=== PATIENT | female | born 1965 | race Caucasian/White ===

== ENCOUNTER 2016-10-01 11:05 | Emergency (ER) | payer BC ==
[~2016-10-01] VITALS: Ht 170.2 cm; Wt 68.2 kg
[2016-10-01 11:10] VITALS: TEMP 36.8
[2016-10-01 11:20] VITALS: O2SAT 100
[2016-10-01] MEDS ORDERED: CHOL1CHW10 PO (11:57)
[2016-10-01] MEDS ORDERED: FERR325T PO (11:57)
[2016-10-01] MEDS ORDERED: MULT-506 PO (11:57)
[2016-10-01] MEDS ORDERED: BIOF500C2 PO (11:57)
[2016-10-01] MEDS ORDERED: SODIUM CHLORIDE 0.9% 1000ML 1,000 ML IV SCH (12:11)
[2016-10-01 12:15] VITALS: Ht 170.2 cm; Wt 68.2 kg
[2016-10-01 12:36] LABS: BASO % 1.1 %; BASO ABS # 0.05 K/uL (0-0.2); COMPLETE YES; EOS % 0.9 %; HEMATOCRIT 36.5 % (37-47); IG% 0.2 %; LYMPH % 29.3 %; LYMPH ABS # 1.28 K/uL (1.2-3.4); MEAN CELL VOLUME 91.3 fL (80-100); MEAN PLATELET VOLUME 10.7 fL (7.4-10.4); NEUT % 60.5 %; PLATELET COUNT 244 K/uL (130-400); WHITE BLOOD COUNT 4.37 K/uL (4.8-10.8)
--- NOTE | 2016-10-01 12:41 | DIAGNOSTIC IMAGING REPORT ---
CHEST ONE VIEW PORTABLE CLINICAL HISTORY: Stroke symptoms. COMPARISON STUDY: No previous studies for comparison. FINDINGS: There is no pneumothorax or pleural effusion. Lungs are clear. Cardiac size is normal. Mediastinal contours are normal. There is no evidence of pulmonary edema. IMPRESSION: No acute cardiopulmonary findings. Electronically signed by: Jermain Guadarrama M.D. 10/01/2016 12:39 PM Dictated Date/Time: 10/01/2016 12:38 PM
[2016-10-01 12:43] LABS: BLOOD UREA NITROGEN 17 mg/dl (7-18); BUN/CREATININE RATIO 16.9 (10-20); CALCIUM 8.8 mg/dl (8.5-10.1); CARBON DIOXIDE 26 mmol/L (21-32); CHLORIDE 105 mmol/L (98-107); GLUCOSE 104 mg/dl (70-99); POTASSIUM 3.8 mmol/L (3.5-5.1); SODIUM 140 mmol/L (136-145)
[2016-10-01 12:47] LABS: CKMB/CK RATIO 0.4 (0-3.0)
[2016-10-01] MEDS ORDERED: SODIUM CHLORIDE 0.9% 1000ML 1,000 ML IV STA (13:00)
--- NOTE | 2016-10-01 13:06 | EMERGENCY ROOM VISIT NOTE ---
History Report prepared by Delmer: Mariposa Odonnell Under the Supervision of: Dr. Mundo Quan M.D. First contact with patient: 12:11 Chief Complaint: SYNCOPE (NEAR SYNCOPE) Stated Complaint: BLACKED OUT Nursing Triage Summary: pt reports while driving " I suddenly couldnt see for a short time, I said whats happening I could feel my hands on the steering wheel, I was aware the whole time" denies LOC. pt then went to MD office, sent here for eval speech clear and appropriate, denies DUNBAR ,denies vision changes at this time History of Present Illness The patient is a 51 year old female who presents to the Emergency Room with complaints of an episode of near syncope occurring [employer]. She was feeling fine this morning. She went for a jog and had half a bagel for breakfast. She notes that she ate a larger breakfast than she typically does. Later in the morning she was getting in the car to drive her son to the gym. The patient states that she had a tense interaction with him about sitting in the front seat. Shortly after this interaction she developed a "weird feeling." She states that she was feeling stressed. At this point, she had driven about 1-2 blocks when her symptoms started. The patient states that it was like a black curtain came over her vision in both eyes. She was unable to see out of both eyes for 2 seconds. She pulled off to the side of the road and then her vision quickly returned. The patient denies any LOC. She felt tingling after the episode and attributes this to feeling anxious. The patient also notes that she smelled something burning in the car and rolled the windows down. She states this smell is due to a recent oil change. The patient went to a [id number] today and was sent to the ED for further evaluation. She denies any recent long trips. Source of History: patient Onset: CONSUMER LOAN PROCESSOR Position: other (global) Quality: other (near-syncope) Timing: other (episode) Modifying Factors (Worsening): other (stress/anxiety) Associated Symptoms: No LOC Note: Pt reports loss of vision. Pt denies long trips. Review of Systems See HPI for pertinent positives & negatives. A total of 10 systems reviewed and were otherwise negative. Past Medical & Surgical Medical Problems: (1) No significant active problems Family History Heart disease Social History Smoking Status: Never Smoker Marital Status: Housing Status: lives with family Occupation Status: employed Current/Historical Medications Scheduled Bioflavonoid Products (Vitamin C), 500 MG PO DAILY Cholecalciferol (Vitamin D3), 1,000 UNITS PO DAILY Ferrous Sulfate (Ferrous Sulfate), 325 MG PO DAILY Multivitamin (Multivitamin), 1 TAB PO DAILY Allergies Coded Allergies: No Known Allergies (Unverified , 10/01/16) Physical Exam Vital Signs Date Time Temp Pulse Resp B/P Pulse Ox O2 Delivery O2 Flow Rate FiO2 10/01/16 13:49 75 16 119/71 99 10/01/16 13:20 76 16 120/71 100 Room Air 10/01/16 12:07 75 16 131/79 97 Room Air 10/01/16 11:26 77 10/01/16 11:20 100 Room Air 10/01/16 11:20 77 16 132/86 95 Room Air 10/01/16 11:10 36.8 86 18 141/76 100 Room Air Physical Exam GENERAL: Patient is a healthy-appearing well-nourished 51 year old female. HEAD: Normocephalic atraumatic EYES: Ocular movements intact pupils equal and react to light OROPHARYNX mucous membranes are moist no exudates present no erythema or edema present NECK: Supple no nuchal rigidity CHEST: Good equal expansion LUNGS: Clear and equal to auscultation CARDIAC: Normal S1 and S2 ABDOMEN: Soft nontender no guarding BACK: No CVA tenderness EXTREMITIES: No pain upon palpation normal muscle strength in all groups no clubbing cyanosis or edema NEURO: Patient is following commands is answering questions appropriately. Alert and oriented x3 Cranial Nerves 2-12 grossly intact Medical Decision & Procedures ER Provider Diagnostic Interpretation: Radiology results as stated below per my review and radiologist interpretation: CT SCAN OF THE BRAIN WITHOUT IV CONTRAST CLINICAL HISTORY: Syncope. COMPARISON STUDY: No priors. TECHNIQUE: Unenhanced axial CT scan of the brain is performed from the vertex to the skull base. Automated dose control exposure was utilized. CT DOSE: 537.48 mGy.cm FINDINGS: Brain parenchyma: The brain parenchyma is normal in appearance. There is no hemorrhage, mass effect, or evidence of acute territorial ischemia by CT criteria. Mcrae-white matter is preserved. No extra-axial fluid collection is seen. Ventricles, sulci, cisterns: Normal in configuration. Intracranial vasculature: The visualized intracranial vasculature at the skull base is normal in appearance. Calvarium: There is no depressed calvarial fracture. Sinuses and mastoids: The visualized paranasal sinuses are clear. The mastoid air cells are well pneumatized. Orbits: The bony orbits are grossly intact. IMPRESSION: There is no hemorrhage, mass effect, or evidence of acute territorial ischemia by CT criteria. Electronically signed by: Camden Carmona M.D. 10/01/2016 1:20 PM Dictated Date/Time: 10/01/2016 1:17 PM CHEST ONE VIEW PORTABLE CLINICAL HISTORY: Stroke symptoms. COMPARISON STUDY: No previous studies for comparison. FINDINGS: There is no pneumothorax or pleural effusion. Lungs are clear. Cardiac size is normal. Mediastinal contours are normal. There is no evidence of pulmonary edema. IMPRESSION: No acute cardiopulmonary findings. Electronically signed by: Jermain Guadarrama M.D. 10/01/2016 12:39 PM Dictated Date/Time: 10/01/2016 12:38 PM Laboratory Results 10/01/16 11:33 Red Blood Count 4.00, Mean Corpuscular Volume 91.3, Mean Corpuscular Hemoglobin 31.0, Mean Corpuscular Hemoglobin Concent 34.0, Mean Platelet Volume 10.7, Neutrophils (%) (Auto) 60.5, Lymphocytes (%) (Auto) 29.3, Monocytes (%) (Auto) 8.0, Eosinophils (%) (Auto) 0.9, Basophils (%) (Auto) 1.1, Neutrophils # (Auto) 2.64, Lymphocytes # (Auto) 1.28, Monocytes # (Auto) 0.35, Eosinophils # (Auto) 0.04, Basophils # (Auto) 0.05 10/01/16 11:33 Test 10/01/16 11:33 10/01/16 12:40 10/01/16 12:53 10/01/16 12:55 White Blood Count 4.37 K/uL (4.8-10.8) Red Blood Count 4.00 M/uL (4.2-5.4) Hemoglobin 12.4 g/dL (12.0-16.0) Hematocrit 36.5 % (37-47) Mean Corpuscular Volume 91.3 fL (80-100) Mean Corpuscular Hemoglobin 31.0 pg (25-34) Mean Corpuscular Hemoglobin Concent 34.0 g/dl (32-36) Platelet Count 244 K/uL (130-400) Mean Platelet Volume 10.7 fL (7.4-10.4) Neutrophils (%) (Auto) 60.5 % Lymphocytes (%) (Auto) 29.3 % Monocytes (%) (Auto) 8.0 % Eosinophils (%) (Auto) 0.9 % Basophils (%) (Auto) 1.1 % Neutrophils # (Auto) 2.64 K/uL (1.4-6.5) Lymphocytes # (Auto) 1.28 K/uL (1.2-3.4) Monocytes # (Auto) 0.35 K/uL (0.11-0.59) Eosinophils # (Auto) 0.04 K/uL (0-0.5) Basophils # (Auto) 0.05 K/uL (0-0.2) RDW Standard Deviation 42.6 fL (36.4-46.3) RDW Coefficient of Variation 12.7 % (11.5-14.5) Immature Granulocyte % (Auto) 0.2 % Immature Granulocyte # (Auto) 0.01 K/uL (0.00-0.02) Anion Gap 9.0 mmol/L (3-11) Est Creatinine Clear Calc Drug Dose 65.5 ml/min Estimated GFR () 76.1 Estimated GFR (Non- 65.6 BUN/Creatinine Ratio 16.9 (10-20) Calcium Level 8.8 mg/dl (8.5-10.1) Total Creatine Kinase 298 U/L (26-192) Creatine Kinase MB 1.3 ng/ml (0.5-3.6) Creatine Kinase MB Ratio 0.4 (0-3.0) Troponin I < 0.015 ng/ml (0-0.045) Urine Opiates Screen NEG (NEG) Urine Methadone, Qualitative NEG (NEG) Urine Barbiturates NEG (NEG) Urine Phencyclidine (PCP) Level NEG (NEG) Ur Amphetamine/Methamphetamine NEG (NEG) MDMA (Ecstasy) Screen NEG (NEG) Urine Benzodiazepines Screen NEG (NEG) Urine Cocaine Metabolite NEG (NEG) Urine Marijuana (THC) NEG (NEG) Prothrombin Time 11.0 SECONDS (9.0-12.0) Prothromb Time International Ratio 1.0 (0.9-1.1) Activated Partial Thromboplast Time 26.4 SECONDS (21.0-31.0) Partial Thromboplastin Ratio 1.0 Bedside Glucose 105 mg/dl (70-90) Labs reviewed by ED physician. Medications Administered Medications (Trade) Dose Ordered Sig/Сергей Route Start Time Stop Time Status Last Admin Dose Admin Sodium Chloride 1,000 ml @ 50 mls/hr Q20H IV 10/01/16 12:11 10/01/16 14:23 DC 10/01/16 12:58 50 MLS/HR Sodium Chloride (Nss 1000ml) 1,000 ml @ 999 mls/hr Q1H1M STAT IV 10/01/16 13:00 10/01/16 14:00 DC 10/01/16 13:00 999 MLS/HR ECG Indication: syncope Rate (beats per minute): 73 Rhythm: normal sinus Findings: no acute ischemic change, no ectopy ED Course 1211: Past medical records reviewed. The patient was evaluated in room C12B. A complete history and physical examination was performed. 1211: NSS 1000 ml @ 50 mls/hr IV 1300: NSS 1000 ml @ 999 mls/hr IV 1336: I reassessed the patient at this time. She is feeling better and resting comfortably. I discussed the results and treatment plan with the patient. I answered all pertaining questions that she had. She expressed understanding and verbalized agreement. The patient will be discharged home. Medical Decision Differential diagnosis: Etiologies such as vasovagal event, infection, hypoglycemia, electrolyte abnormalities, cardiac sources, intracerebral event, toxicologic, neurologic, as well as others were entertained. This is a 51-year-old female who presents emergency department after having a short duration of losing sight in both eyes. The patient reports that she ate abnormally that morning and in addition was having an argument with her son at the time that this happened. The episode was over very briefly. The patient had an aura and that she knew that something was not quite right. She reports she immediately turned back to her baseline. As this affected both eyes I do not feel that the patient had a stroke protocol more likely a vasovagal episode that occurred while she was arguing with her son. She has a normal CAT scan of the head, normal chest x-ray normal EKG normal CK-MB troponin. She was given fluid bolus in the emergency department. I strongly encouraged the patient to get something to eat. She does have an elevation in her CK levels and I do believe that this is due to patient exercising heavily over the past couple days which she admits to. I stressed the need for follow-up with the patient's primary care physician. Patient was in agreement with the treatment plan. Impression Primary Impression: Vasovagal episode Scribe Attestation The scribe's documentation has been prepared under my direction and personally reviewed by me in its entirety. I confirm that the note above accurately reflects all work, treatment, procedures, and medical decision making performed by me. Departure Information Dispostion Home / Self-Care Referrals Beatris Rico M.D. (PCP) Forms HOME CARE DOCUMENTATION FORM, IMPORTANT VISIT INFORMATION Patient Instructions ED Near Syncope Vasovagal, My [facility] Additional Instructions Increase fluids next 48 hours Follow up with DR Rico's office You have been examined and treated today on an emergency basis only. This is not a substitute for, or an effort to provide, complete comprehensive medical care. It is impossible to recognize and treat all injuries or illnesses in a single emergency department visit. It is therefore important that you follow up closely with Dr Rico. Call as soon as possible for an appointment. Thank you for your time and consideration. I look forward to speaking with you again soon. Please don't hesitate to call us if you have any questions.
[2016-10-01 13:21] LABS: BENZODIAZEPINE, URINE NEG (NEG); COCAINE,URINE NEG (NEG); PHENCYCLIDINE, URINE NEG (NEG)
--- NOTE | 2016-10-01 13:22 | DIAGNOSTIC IMAGING REPORT ---
CT SCAN OF THE BRAIN WITHOUT IV CONTRAST CLINICAL HISTORY: Syncope. COMPARISON STUDY: No priors. TECHNIQUE: Unenhanced axial CT scan of the brain is performed from the vertex to the skull base. Automated dose control exposure was utilized. CT DOSE: 537.48 mGy.cm FINDINGS: Brain parenchyma: The brain parenchyma is normal in appearance. There is no hemorrhage, mass effect, or evidence of acute territorial ischemia by CT criteria. Mcrae-white matter is preserved. No extra-axial fluid collection is seen. Ventricles, sulci, cisterns: Normal in configuration. Intracranial vasculature: The visualized intracranial vasculature at the skull base is normal in appearance. Calvarium: There is no depressed calvarial fracture. Sinuses and mastoids: The visualized paranasal sinuses are clear. The mastoid air cells are well pneumatized. Orbits: The bony orbits are grossly intact. IMPRESSION: There is no hemorrhage, mass effect, or evidence of acute territorial ischemia by CT criteria. Electronically signed by: Camden Carmona M.D. 10/01/2016 1:20 PM Dictated Date/Time: 10/01/2016 1:17 PM
[2016-10-01 13:49] VITALS: BP 119/71; PULSE 75; O2SAT 99
== END 2016-10-01 13:57 | disposition home or self-care (01) ==
LOC: C.EDB 11:06 → C.EDC 13:57
DX: R55 Syncope and collapse (principal)

== ENCOUNTER → 2017-03-15 | Outpatient (CLI) | payer BC ==
[~2017-03-15] MED LIST: BIOF500C2 PO; CHOL1CHW10 PO; FERR325T PO; MULT-506 PO
--- NOTE | 2017-03-18 12:36 | MAMMOGRAPHY REPORT ---
BILATERAL DIGITAL SCREENING MAMMOGRAM TOMOSYNTHESIS WITH CAD: 03/15/2017 CLINICAL HISTORY: Routine screening. The patient reported to the technologist that she feels intermi ttent prominence in the left axillary/proximal arm region. TECHNIQUE: Breast tomosynthesis in addition to standard 2D mammography was performed. Current study was also evaluated with a Computer Aided Detection (CAD) system. BREAST COMPOSITION: The tissue of both breasts is heterogeneously dense, which may obscure small mas ses. FINDINGS: No suspicious masses, calcifications, or areas of architectural distortion are noted in ei ther breast. There has been no significant interval change compared to prior exams. A triangle marke r garnett the prominent area pointed out by the patient in the left axillary region; this area is not w ell visualized mammographically but no suspicious abnormality is seen in this region on the MLO view. IMPRESSION: ACR BI-RADS CATEGORY 1: NEGATIVE There is no mammographic evidence of malignancy. A 1 year screening mammogram is recommended. The pa abigail also reported intermittent prominence in the left axillary/proximal arm region; recommend clini leticia follow-up, and if clinically suspicious ultrasound could be performed. The patient will receive written notification of the results. Approximately 10% of breast cancers are not detected with mammography. A negative mammographic report should not delay biopsy if a clinically suggestive mass is present. Navya Moreau M.D. /:03/15/2017 15:53:29 Adobe Developer: Brandi MCKENZIE)(Jocelynn), [facility] letter sent: Normal 1/2 BI-RADS Code: ACR BI-RADS Category 1: Negative
== END | disposition home or self-care (01) ==
LOC: C.MAMM 09:04
PROVIDERS: ATTEND Obstetrics & Gynecology
DX: Z12.31 Encounter for screening mammogram for malignant neoplasm of breast (principal)

== ENCOUNTER → 2017-08-27 | Outpatient (CLI) | payer BC ==
[~2017-08-27] MED LIST changes: +FERR1TAB62 PO; -FERR325T PO
== END | disposition home or self-care (01) ==
LOC: C.PAPS 08:56
PROVIDERS: ATTEND Obstetrics & Gynecology
DX: Z01.419 Encounter for gynecological examination (general) (routine) without abnormal findings (principal)

== ENCOUNTER → 2018-04-17 | Outpatient (CLI) | payer OTHER ==
--- NOTE | 2018-04-17 08:37 | DIAGNOSTIC IMAGING REPORT ---
R FOOT MIN 3 VIEWS CLINICAL HISTORY: RIGHT FOOT PAIN pain COMPARISON: None. DISCUSSION: The bones and joint spaces appear intact. There is no evidence of fracture, dislocation or bony disease. There is no evidence for soft tissue swelling. IMPRESSION: Negative study. The above report was generated using voice recognition software. It may contain grammatical, syntax or spelling errors. Electronically signed by: Candelario Duke M.D. 04/17/2018 8:36 AM Dictated Date/Time: 04/17/2018 8:35 AM
== END | disposition home or self-care (01) ==
LOC: C.RDSM 07:52
PROVIDERS: ATTEND Family Medicine
DX: R22.41 Localized swelling, mass and lump, right lower limb (principal)